=== PATIENT | female | born 1950 | race Caucasian/White ===

== ENCOUNTER 2017-10-08 07:02 | Outpatient (CLI) | payer OTHER ==
[~2017-10-08 07:02] MED LIST: COZAAR50 MG; INTESTINEX1 CAP PO; PEPCID40 MG PO; SYNTHROID100 MCG; TOPROL XL25 M1; ZOCOR40 MG
== END 2017-10-08 07:09 | disposition home or self-care (01) ==
LOC: RAD 07:02
DX: J45.998 Other asthma (principal)

== ENCOUNTER → 2018-01-16 | Outpatient (CLI) | payer OTHER | END | disposition home or self-care (01) | LOC: SONOGRAMA 09:31 | DX: E03.8 Other specified hypothyroidism (principal); E07.89 Other specified disorders of thyroid ==

== ENCOUNTER 2019-07-21 11:31 | Outpatient (CLI) | payer OTHER | END 2019-07-21 11:41 | disposition home or self-care (01) | LOC: LAB 11:31 | DX: Z20.828 Contact with and (suspected) exposure to other viral communicable diseases (principal) ==

== ENCOUNTER 2020-10-31 10:00 | Inpatient (IN) | payer OTHER ==
[~2020-10-31] VITALS: Ht 157.5 cm; Wt 73.5 kg
[2020-10-31] MEDS ORDERED: ZETIA10 MG PO (12:02)
[2020-11-07] MEDS ORDERED: COLACE100 MG PO (12:58)
[2020-11-07] MEDS ORDERED: NEURONTIN800 MG PO (12:58)
[2020-11-07] MEDS ORDERED: DIAZEPAM5 MG PO (12:58)
[2020-11-07] MEDS ORDERED: MEDROLPACK PO (12:58)
[2020-11-07] MEDS ORDERED: PERCOCET 5-3251 EACH PO (12:58)
[2020-11-07] MEDS ORDERED: AMOX-CLAV 875-1 EACH PO (12:58)
== END 2020-11-10 13:36 | disposition home health service (06) | DRG 455 ==
LOC: O/R 11-07 07:39 → SURH 11-07 07:39
PROVIDERS: ADMIT Orthopaedic Surgery Orthopaedic Surgery of the Spine; ATTEND Orthopaedic Surgery Orthopaedic Surgery of the Spine
PROC: 0SG3071 Fusion of Lumbosacral Joint with Autologous Tissue Substitute, Posterior Approach, Posterior Column, Open Approach (ICD-10-PCS; 2020-11-08)
PROC: 07DR0ZZ Extraction of Iliac Bone Marrow, Open Approach (ICD-10-PCS; 2020-11-08)
PROC: 0SG30AJ Fusion of Lumbosacral Joint with Interbody Fusion Device, Posterior Approach, Anterior Column, Open Approach (ICD-10-PCS; principal; 2020-11-08 22:00)
DX: M43.17 Spondylolisthesis, lumbosacral region (principal); M48.07 Spinal stenosis, lumbosacral region; I10 Essential (primary) hypertension

== ENCOUNTER 2022-08-20 10:39 | Outpatient (CLI) | payer OTHER ==
[~2022-08-20 10:39] MED LIST changes: +AMOX-CLAV 875-1 EACH PO; +COLACE100 MG PO; +DIAZEPAM5 MG PO; +MEDROLPACK PO; +NEURONTIN800 MG PO; +PERCOCET 5-3251 EACH PO; +ZETIA10 MG PO
== END 2022-08-20 10:45 | disposition home or self-care (01) ==
LOC: SONOGRAMA 10:39
PROVIDERS: ATTEND Physical Medicine & Rehabilitation Hospice and Palliative Medicine
DX: M76.62 Achilles tendinitis, left leg (principal)

== ENCOUNTER 2025-02-25 13:33 | Outpatient (CLI) | payer OTHER | END 2025-02-25 13:40 | disposition home or self-care (01) | LOC: RAD 13:33 | PROVIDERS: ATTEND Orthopaedic Surgery | DX: M25.571 Pain in right ankle and joints of right foot (principal); M25.572 Pain in left ankle and joints of left foot; M79.671 Pain in right foot; M79.672 Pain in left foot ==

== ENCOUNTER → 2025-03-01 | Emergency (ER) | payer OTHER ==
[~2025-03-01] VITALS: Ht 165.1 cm; Wt 122.5 kg
[~2025-03-01] MED LIST changes: +KETOROLAC TROMETHAMINE 30 MG VIAL IM ONE; +KETOROLAC TROMETHAMINE 30 MG VIAL ONE; +NEURONTIN300 MG PO; +VALACYCLOVIR1000 MG PO
[2025-03-01 14:26] VITALS: BP 137/81; O2SAT 98
[2025-03-01 16:19] LABS: BASO % 0.4 % (0.1-1.2); EOS # 0.06 (0.04-0.54); EOS % 0.8 % (0.7-7.0); LYMPH # 1.83 (1.18-3.74); LYMPH % 24.0 % (19.3-53.1); MEAN PLATELET VOLUME 12.20 fl (9.4-12.4); MONO # 0.72 (0.24-0.82); MONO % 9.4 % (4.7-12.5); NEUT # 4.98 (1.56-6.13); NEUT % 65.1 % (34.0-71.1); RED CELL DISTRIBUTION WIDTH 15.4 % (11.6-14.4)
[2025-03-01 16:49] LABS: URINE APPEARANCE Clear; URINE BILIRRUBIN Negative (NEGATIVE); URINE BLOOD Trace; URINE COLOR Yellow; URINE GLUCOSE Negative (NEGATIVE); URINE KETONE Trace (NEGATIVE); URINE LEUKOCYTE Trace; URINE NITRATE Negative; URINE PROTEIN Trace (NEGATIVE); URINE UROBILINOGEN 1.0 E.U./dl
[2025-03-01 16:54] LABS: URINE BACTERIA 188.6 uL (0.0-1933); URINE EPITHELIAL CELLS 8.5 uL (0.0-38.8); URINE RBC 13.3 uL (0.0-20.8); URINE WBC 18.0 uL (0.0-23.2)
[2025-03-01 17:05] LABS: URINE CAST 0.00 uL (0.0-1.40)
[2025-03-01 17:06] LABS: ALT/SGPT 103.0 U/L (12-78); AST/SGOT 112.0 U/L (15-37); BILIRUBIN TOTAL 0.57 mg/dL (0.3-1.2); BUN CREA RATIO 13.0 (7.0-25.0); CREATININE SERUM 0.91 mg/dL (0.55-1.02); GFR 60.26; GLOBULINA 3.8 G/DL (2.4-3.5); GLUCOSE FASTING 174.0 mg/dL (65-100); OSMOLALITY SERUM 287.0 MOSM/KG (275-295)
== END | disposition home or self-care (01) ==
LOC: ER 12:13
PROVIDERS: Student in an Organized Health Care Education/Training Program
DX: R10.A1 Flank pain, right side (principal); B02.8 Zoster with other complications; Z88.8 Allergy status to other drugs, medicaments and biological substances; I10 Essential (primary) hypertension; E03.8 Other specified hypothyroidism; E78.49 Other hyperlipidemia
CPT/HCPCS: 36415; 74176; 96372; 99284; J1885